=== PATIENT | female | born 1985 | race Two or more races ===

== ENCOUNTER 2019-06-28 07:47 | Emergency (ER) | payer MEDICAID ==
[~2019-06-28] VITALS: Ht 160 cm; Wt 72.6 kg
[2019-06-28] MEDS ORDERED: TRAZODONE HCL150 MG ORAL (07:50)
--- NOTE | 2019-06-28 07:55 | Emergency Room Report ---
History of Present Illness General Chief Complaint: General Complaint Source: EMS Present Illness HPI Patient is a 34-year-old female presents after increased anxiety. Patient reports having problems with her posture. She states that she had recently been staying at sober living. She had increased alcohol intake over the past few days. She denies any alcohol intake today. She states that she last used methamphetamine 1 day prior to arrival. She reports having some discomfort to both upper extremities. She denies any fever. She reports having no episodes of vomiting. She states she had one episode of diarrhea yesterday. She denies any bloody stools. She denies being . She states she has prior history of anemia. Allergies: Coded Allergies: No Known Allergies (Unverified , 06/28/19) Patient History Past Medical History: see triage record Reviewed Nursing Documentation: PMH: Agreed; PSxH: Agreed Nursing Documentation-PMH History Of Psychiatric Problem: Yes - DEPRESSION, SUBSTANCE ABUSE, ANXIETY Review of Systems All Other Systems: negative except mentioned in HPI Physical Exam Vital Signs Date Time Temp Pulse Resp B/P (MAP) Pulse Ox O2 Delivery O2 Flow Rate FiO2 06/28/19 07:45 99.1 101 19 138/96 (110) 99 Room Air General Appearance: well appearing, no apparent distress, alert, GCS 15, non- toxic Head: normocephalic, atraumatic ENT: hearing grossly normal, normal voice Neck: full range of motion, supple Respiratory: lungs clear, no respiratory distress, speaking full sentences Cardiovascular #1: normal inspection, no edema Gastrointestinal: normal inspection, soft Musculoskeletal: no calf tenderness Neurologic: alert, oriented x3, responsive, shelver III-XII nml as tested, normal gait Psychiatric: mood/affect normal Skin: no rash Medical Decision Making Diagnostic Impression: Primary Impression: Hypokalemia Additional Impression: Substance abuse ER Course Patient presented for increased anxiety. Differential diagnosis include was not limited to substance abuse, alcohol withdrawal, alcohol intoxication, Dennis's disease, hypothyroidism among others. because of complexity of patient's case laboratory testing and imaging studies were ordered. Patient was noted to have what appears to be some slurred speech as well as increased akathetic movements. This may be related to patient's recent methamphetamine abuse. Laboratory testing was ordered. Patient started on IV hydration given IV Ativan. Patient was observed and had improvement in symptoms. I feel the patient's symptoms are most consistent with anxiety. The patient does not have suicidal ideation or evidence for asiya psychiatric decompensation. Given the patients history and evaluation here today course, I feel that more malignant processes are extremely unlikely. She was advised of her liver test abnormalities and was advised to follow up for further evaluation and treatment. Patient was advised to follow up with primary care physician. Patient to return if worse or any concerns. She was advised to abstain from alcohol and drugs. Labs Test 06/28/19 08:08 06/28/19 08:58 White Blood Count 10.7 K/UL (4.8-10.8) Red Blood Count 4.60 M/UL (4.20-5.40) Hemoglobin 13.7 G/DL (12.0-16.0) Hematocrit 40.8 % (37.0-47.0) Mean Corpuscular Volume 89 FL (80-99) Mean Corpuscular Hemoglobin 29.7 PG (27.0-31.0) Mean Corpuscular Hemoglobin Concent 33.5 G/DL (32.0-36.0) Red Cell Distribution Width 13.0 % (11.6-14.8) Platelet Count 331 K/UL (150-450) Mean Platelet Volume 6.7 FL (6.5-10.1) Neutrophils (%) (Auto) 63.4 % (45.0-75.0) Lymphocytes (%) (Auto) 24.3 % (20.0-45.0) Monocytes (%) (Auto) 9.2 % (1.0-10.0) Eosinophils (%) (Auto) 2.0 % (0.0-3.0) Basophils (%) (Auto) 1.2 % (0.0-2.0) Sodium Level 137 MMOL/L (136-145) Potassium Level 2.8 MMOL/L (3.5-5.1) Chloride Level 102 MMOL/L (98-107) Carbon Dioxide Level 25 MMOL/L (21-32) Anion Gap 10 mmol/L (5-15) Blood Urea Nitrogen 7 mg/dL (7-18) Creatinine 0.8 MG/DL (0.55-1.30) Estimat Glomerular Filtration Rate > 60 mL/min (>60) Glucose Level 92 MG/DL (74-106) Calcium Level 9.3 MG/DL (8.5-10.1) Total Bilirubin 3.7 MG/DL (0.2-1.0) Direct Bilirubin 0.4 MG/DL (0.0-0.3) Aspartate Amino Transf (AST/SGOT) 27 U/L (15-37) Alanine Aminotransferase (ALT/SGPT) 55 U/L (12-78) Alkaline Phosphatase 112 U/L (46-116) Total Protein 7.4 G/DL (6.4-8.2) Albumin 3.7 G/DL (3.4-5.0) Globulin 3.7 g/dL Albumin/Globulin Ratio 1.0 (1.0-2.7) Salicylates Level < 0.2 ug/mL (2.8-20) Acetaminophen Level < 2 MCG/ML (10-30) Serum Alcohol < 3 mg/dL Urine Color Yellow Urine Appearance Clear Urine pH 7 (4.5-8.0) Urine Specific [place] 1.010 (1.005-1.035) Urine Protein 2+ (NEGATIVE) Urine Glucose (UA) Negative (NEGATIVE) Urine Ketones 2+ (NEGATIVE) Urine Blood 1+ (NEGATIVE) Urine Nitrite Negative (NEGATIVE) Urine Bilirubin Negative (NEGATIVE) Urine Urobilinogen 8 MG/DL (0.0-1.0) Urine Leukocyte Esterase 1+ (NEGATIVE) Urine RBC 0-2 /HPF (0 - 2) Urine WBC 2-4 /HPF (0 - 2) Urine Squamous Epithelial Cells Moderate /LPF (NONE/OCC) Urine Bacteria Few /HPF (NONE) Urine Hyaline Casts 2-4 /LPF (NONE) Urine Mucus Few /LPF (NONE/OCC) Urine HCG, Qualitative Negative (NEGATIVE) Urine Opiates Screen Negative (NEGATIVE) Urine Barbiturates Screen Negative (NEGATIVE) Phencyclidine (PCP) Screen Negative (NEGATIVE) Urine Amphetamines Screen Positive (NEGATIVE) Urine Benzodiazepines Screen Negative (NEGATIVE) Urine Cocaine Screen Negative (NEGATIVE) Urine Marijuana (THC) Screen Negative (NEGATIVE) Last Vital Signs Date Time Temp Pulse Resp B/P (MAP) Pulse Ox O2 Delivery O2 Flow Rate FiO2 06/28/19 07:45 99.1 101 19 138/96 (110) 99 Room Air Status: improved Disposition: HOME, SELF-CARE Condition: Stable Scripts Omeprazole (OMEPRAZOLE) 20 Mg Capsule. 20 MG ORAL DAILY, #30 CAP Prov: Dwight Rubio MD 06/28/19 Ibuprofen* (MOTRIN*) 400 Mg Tablet 400 MG ORAL Q6H, #30 TAB 0 Refills Prov: Dwight Rubio MD 06/28/19 Dwight Rubio MD Jun 28, 2019 07:55
--- NOTE | 2019-06-28 07:56 | NUR ---
ED Nurse Note: PT. MORRO FROM [facility] DUE TO ANXIETY X 2 DAYS, HAS BEEN DRINKING FOR 3 DAYS. VSS AND PT TRANSFERED TO HER BED HER SELF.
[2019-06-28 08:00] VITALS: BP 125/90
[2019-06-28] MEDS ORDERED: LORazepam Inj 2mg/ml 1ml IV ONE (08:00)
--- NOTE | 2019-06-28 08:17 | NUR ---
ED Nurse Note; TUBES SENT TO LAB.
[2019-06-28 08:20] LABS: BASOPHILS % (AUTO) 1.2 % (0.0-2.0); HEMATOCRIT 40.8 % (37.0-47.0); HEMOGLOBIN 13.7 G/DL (12.0-16.0); LYMPHOCYTES % (AUTO) 24.3 % (20.0-45.0); MEAN CORPUSCULAR VOLUME 89 FL (80-99); MONOCYTES % (AUTO) 9.2 % (1.0-10.0); NEUTROPHILS % (AUTO) 63.4 % (45.0-75.0); PLATELET COUNT 331 K/UL (150-450); WHITE BLOOD COUNT 10.7 K/UL (4.8-10.8)
--- NOTE | 2019-06-28 08:33 | NUR ---
ED Nurse Note: PT SLEEPING COMFORTABLY WITH NO SIGNS OF ACUTE DISTRESS.
[2019-06-28 08:34] LABS: ANION GAP 10 mmol/L (5-15); BLOOD UREA NITROGEN 7 mg/dL (7-18); CALCIUM 9.3 MG/DL (8.5-10.1); CARBON DIOXIDE 25 MMOL/L (21-32); CHLORIDE 102 MMOL/L (98-107); CREATININE 0.8 MG/DL (0.55-1.30); POTASSIUM 2.8 MMOL/L (3.5-5.1); SODIUM 137 MMOL/L (136-145)
[2019-06-28 08:45] LABS: ALANINE AMINOTRANSFERASE 55 U/L (12-78); ALBUMIN 3.7 G/DL (3.4-5.0); ALKALINE PHOSPHATASE 112 U/L (46-116); ASPARTATE AMINO TRANSFERASE 27 U/L (15-37); BILIRUBIN,TOTAL 3.7 MG/DL (0.2-1.0)
[2019-06-28 08:50] LABS: BILIRUBIN,DIRECT 0.4 MG/DL (0.0-0.3)
--- NOTE | 2019-06-28 09:04 | NUR ---
ED Nurse Note: PT URINE SENT TO LAB.
[2019-06-28 09:11] LABS: APPEARANCE,URINE CLEAR; BILIRUBIN, URINE NEGATIVE (NEGATIVE); GLUCOSE, URINE (UA) NEGATIVE (NEGATIVE); KETONES,URINE 2+ (NEGATIVE); LEUKOCYTE ESTERASE ,URINE 1+ (NEGATIVE); NITRITE,URINE NEGATIVE (NEGATIVE); PH,URINE 7 (4.5-8.0); PROTEIN,URINE 2+ (NEGATIVE); UROBILINOGEN,URINE 8 MG/DL (0.0-1.0)
[2019-06-28 09:24] LABS: COLOR,URINE YELLOW
[2019-06-28] MEDS ORDERED: Ketorolac 30mg Inj IV ONE (11:45)
[2019-06-28] MEDS ORDERED: IBUPROFEN400 MG ORAL (12:45)
[2019-06-28] MEDS ORDERED: OMEPRAZOLE20 M2 ORAL (12:45)
[2019-06-28 16:30] VITALS: BP 125/90
== END 2019-06-28 16:30 | disposition home or self-care (01) ==
LOC: EDBD 07:47 → EMR 08:00
DX: E87.6 Hypokalemia (principal); F15.10 Other stimulant abuse, uncomplicated; F32.9 Major depressive disorder, single episode, unspecified; F41.9 Anxiety disorder, unspecified
CPT/HCPCS: 36415; 80053; 80307; 80329; 81003; 81025; 82248; 85025; 96365; 96375; 99284; J1885; J8499

== ENCOUNTER 2020-02-20 23:49 | Emergency (ER) | payer MEDICAID ==
[~2020-02-20] VITALS: Ht 165.1 cm; Wt 72.6 kg
[~2020-02-20 23:49] MED LIST: IBUPROFEN400 MG ORAL; OMEPRAZOLE20 M2 ORAL; TRAZODONE HCL150 MG ORAL
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
[2020-02-21 00:05] VITALS: BP 150/50
[2020-02-21] MEDS ORDERED: LORazepam 1mg tab ORAL ONE (00:15)
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
--- NOTE | 2020-02-21 00:20 | NUR ---
ED Nurse Note: Pt to CT
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
--- NOTE | 2020-02-21 01:11 | NUR ---
ED Nurse Note: Pt back from CT
--- NOTE | 2020-02-21 01:11 | Diagnostic Imaging Report ---
EXAM: CT Head Without Intravenous Contrast CLINICAL HISTORY: PAIN TECHNIQUE: Axial computed tomography images of the head/brain without intravenous contrast. CTDI is 53 mGy and DLP is 1072 mGy-cm. One or more of the following dose reduction techniques were used: automated exposure control, adjustment of the mA and/or kV according to patient size, use of iterative reconstruction technique. COMPARISON: No relevant prior studies available. FINDINGS: Brain: Unremarkable. No hemorrhage. No significant white matter disease. No edema. Ventricles: Unremarkable. No ventriculomegaly. Bones/joints: Unremarkable. No acute fracture. Soft tissues: Unremarkable. Sinuses: Unremarkable as visualized. No acute sinusitis. Mastoid air cells: Unremarkable as visualized. No mastoid effusion. IMPRESSION: Normal head/brain CT.
--- NOTE | 2020-02-21 01:16 | Diagnostic Imaging Report ---
EXAM: CT Maxillofacial Without Intravenous Contrast CLINICAL HISTORY: PAIN TECHNIQUE: Axial computed tomography images of the face without intravenous contrast. CTDI is 15 mGy and DLP is 320 mGy-cm. One or more of the following dose reduction techniques were used: automated exposure control, adjustment of the mA and/or kV according to patient size, use of iterative reconstruction technique. COMPARISON: No relevant prior studies available. FINDINGS: Bones/joints: No acute or healing fracture. Soft tissues: Unremarkable. Orbits: Globes are intact. Retrobulbar soft tissue are normal. No radiopaque foreign bodies. Sinuses: Small mucous retention cyst in the right and left maxilla sinus. Scattered paranasal sinus mucosal thickening with no air-fluid levels. Mastoid air cells: Mastoid air cells and middle ears are clear. Other findings: No abscess. No airway narrowing. IMPRESSION: 1. No abscess or acute sinusitis. 2. No other acute disease.
[2020-02-21] MEDS ORDERED: Acetaminophen 500mg (ES) tab ORAL ONE (01:30)
--- NOTE | 2020-02-21 01:32 | Diagnostic Imaging Report ---
EXAM: CT Cervical Spine Without Intravenous Contrast CLINICAL HISTORY: PAIN TECHNIQUE: Axial computed tomography images of the cervical spine without intravenous contrast. CTDI is 10 mGy and DLP is 353 mGy-cm. One or more of the following dose reduction techniques were used: automated exposure control, adjustment of the mA and/or kV according to patient size, use of iterative reconstruction technique. COMPARISON: No relevant prior studies available. FINDINGS: Vertebrae: Unremarkable. No acute fracture. Discs/spinal canal/neural foramina: No acute findings. No spinal canal stenosis. Soft tissues: Unremarkable. IMPRESSION: Normal cervical spine CT.
[2020-02-21] MEDS ORDERED: Naproxen 500mg tab ORAL ONE (01:45)
--- NOTE | 2020-02-21 03:08 | NUR ---
ED Nurse Note: Offered patient icepack for face
[2020-02-21 04:00] VITALS: BP 135/70
--- NOTE | 2020-02-21 05:00 | NUR ---
ED Nurse Note: Pt resting in bed with eyes closed, non-labored breathing, will continue to monitor
[2020-02-21] MEDS ORDERED: NAPROXEN500 M2 ORAL (05:27)
[2020-02-21 06:00] VITALS: BP 135/70
--- NOTE | 2020-02-21 06:00 | NUR ---
ER DISCHARGE NOTE: Patient is cleared to be discharged per ERMD, pt is aox4, on room air, with stable vital signs. pt was given dc and prescription instructions, pt was able to verbalize understanding, pt id band removed. pt is able to ambulate with steady gait. pt took all belongings. Pt given resources for clinics, shelters and mental health, pt given food.
== END 2020-02-21 06:00 | disposition home or self-care (01) ==
LOC: EMR 02-21 00:15
DX: R68.84 Jaw pain (principal); M54.2 Cervicalgia; Y04.8XXA Assault by other bodily force, initial encounter; Y92.9 Unspecified place or not applicable; F41.9 Anxiety disorder, unspecified; F32.9 Major depressive disorder, single episode, unspecified; S09.90XA Unspecified injury of head, initial encounter
CPT/HCPCS: 70450; 70486; 72125; Z7502; 99284